=== PATIENT | male | born 1965 | race Two or more races ===

== ENCOUNTER → 2018-08-18 | Outpatient (CLI) | payer OTHER ==
--- NOTE | 2018-08-18 13:58 | RAD ---
Indication:Elevated LFTs TECHNIQUE: Grayscale, color Doppler and spectral waveform is of the abdomen obtained. COMPARISON:None FINDINGS: The visualized pancreas is within normal limits. No gallstones, pericholecystic fluid or gallbladder wall thickening. CBD measures 3 mm in diameter and is within normal limits. Right kidney measures 11.7 cm in length without hydronephrosis. Main portal vein is patent. Liver measures 16 cm in length with diffusely increased echogenicity and decreased through transmission. IVC is visualized. The proximal aorta measures 2.2 cm in diameter and is within normal limits. Distal and mid aortic segments aren't visualized due to overlying bowel gas. Spleen measures 11 cm in length and is normal in size. Left kidney measures 11.5 cm in length without hydronephrosis. IMPRESSION: 1. Hepatic steatosis. 2. No cholelithiasis or sonographic evidence of acute cholecystitis. Electronically signed by: Casper Wright DO (08/18/2018 1:55 PM) [id number]
== END | disposition home or self-care (01) ==
LOC: US 09:04
PROVIDERS: ATTEND Internal Medicine Gastroenterology
DX: K76.0 Fatty (change of) liver, not elsewhere classified (principal); R79.89 Other specified abnormal findings of blood chemistry
CPT/HCPCS: 76700